=== PATIENT | male | born 1990 | race Two or more races ===

== ENCOUNTER 2017-12-12 13:09 | Emergency (ER) | payer OTHER ==
[~2017-12-12] VITALS: Ht 177.8 cm; Wt 68.0 kg
[2017-12-12 13:33] VITALS: BP 127/84
[2017-12-12 13:41] LABS: APPEARANCE,URINE SLIGHTLY CLOUDY; BILIRUBIN, URINE NEGATIVE (NEGATIVE); COLOR,URINE PALE YELLOW; GLUCOSE, URINE (UA) NEGATIVE (NEGATIVE); KETONES,URINE NEGATIVE (NEGATIVE); LEUKOCYTE ESTERASE ,URINE NEGATIVE (NEGATIVE); NITRITE,URINE NEGATIVE (NEGATIVE); PH,URINE 8 (4.5-8.0); PROTEIN,URINE NEGATIVE (NEGATIVE); UROBILINOGEN,URINE NORMAL MG/DL (0.0-1.0)
--- NOTE | 2017-12-12 13:51 | Emergency Room Report ---
History of Present Illness General Chief Complaint: Male Urogenital Problems Source: Patient (Edouard Barker P.A.) Present Illness HPI pt is a 27 y.o. M with no sig pmhx, here c/o 2 days of dysuria, urinary frequency, denies hematuria, urgency, flank pain, n/v/fever/chills. pt also c/o 3/10 suprapubic pain when urinating, no radiaton. is sexaully active with one female partner, denies penile dc, pain, ulcer, scrotal pain, trauma to penile area. (Edouard Barker P.A.) Allergies: Coded Allergies: No Known Allergies (Unverified , 12/12/17) Patient History Past Medical History: see triage record Past Surgical History: none Pertinent Family History: none Reviewed Nursing Documentation: PMH: Agreed; PSxH: Agreed (Edouard Barker P.A.) Nursing Documentation-PMH Past Medical History: No Stated History (Edouard Barker P.A.) Review of Systems All Other Systems: negative except mentioned in HPI (Edouard Barker P.A.) Physical Exam Vital Signs Date Time Temp Pulse Resp B/P (MAP) Pulse Ox O2 Delivery O2 Flow Rate FiO2 12/12/17 13:16 98.1 85 18 127/84 98 Room Air 98.1 Sp02 EP Interpretation: reviewed General Appearance: normal inspection, well appearing Head: normocephalic Eyes: bilateral eye normal inspection, bilateral eye PERRL ENT: normal ENT inspection, hearing grossly normal Neck: normal inspection, full range of motion, supple Respiratory: normal inspection, chest non-tender, lungs clear, normal breath sounds, no rhonchi, no respiratory distress, no retraction, no accessory muscle use Cardiovascular #1: normal inspection, normal peripheral pulses, regular rate, rhythm, no edema, no gallop, no JVD, no murmur, no rub Gastrointestinal: normal inspection, soft, no mass, no guarding, tenderness - suprapubic Rectal: deferred Genitourinary: no CVA tenderness Musculoskeletal: normal inspection, back normal Neurologic: normal inspection, alert, oriented x3 Psychiatric: normal inspection, judgement/insight normal, memory normal Skin: normal inspection, normal color, no rash Lymphatic: normal inspection, no adenopathy (Edouard Barker P.A.) Medical Decision Making PA Attestation all ordrs, dx, tx plans were reviewed by by supervising physician Dr Oneill (Edouard Barker P.AFlako) Diagnostic Impression: Primary Impression: Dysuria Additional Impression: Urinary frequency ER Course pt is a 27 y.o. M with no sig pmhx, here c/o 2 days of dysuria, urinary frequency, denies hematuria, urgency, flank pain, n/v/fever/chills. pt also c/o 3/10 suprapubic pain when urinating, no radiaton. is sexaully active with one female partner, denies penile dc, pain, ulcer, scrotal pain, trauma to penile area. Ddx considered but are not limited to urethritis, prostatitis, pylonephritis Vital signs: are WNL, pt. is afebrile H&PE are most consistent with urethritis ORDERS: UA, keflex 500mg qid x7d ED INTERVENTIONS: None required at this time. DISCHARGE: At this time pt. is stable for d/c to home. Will provide printed patient care instructions, and any necessary prescriptions. Care plan and follow up instructions have been discussed with the patient prior to discharge. UA neg leuk neg nitrite Lab Results Impression no growth detected (Edouard Barker P.A.) Last Vital Signs Date Time Temp Pulse Resp B/P (MAP) Pulse Ox O2 Delivery O2 Flow Rate FiO2 12/12/17 13:33 98.1 87 18 127/84 98 Room Air 98.1 (Edouard Barker P.A.) Disposition: HOME, SELF-CARE Condition: Stable Scripts Cephalexin* (KEFLEX*) 500 Mg Capsule 500 MG ORAL EVERY 6 HOURS for 7 Days, #28 CAP Prov: Edouard Barker.Shakira 12/12/17 Patient Instructions: Dysuria, Urethritis, Adult Additional Instructions: follow up with pcp for further workup. drink plenty of fluids, if flank pain, fever/chills, nausea/vomiting return to ED. take meds as directed Edouard Barker Dec 12, 2017 13:51 Hair Oneill M.D. Dec 13, 2017 14:38
[2017-12-12] MEDS ORDERED: CEPHALEXIN500 MG ORAL (14:01)
[2017-12-12 14:07] VITALS: BP 127/84
== END 2017-12-12 14:06 | disposition home or self-care (01) ==
LOC: EMR 13:40
DX: R30.0 Dysuria (principal); R35.0 Frequency of micturition
CPT/HCPCS: 81001; 99283